=== PATIENT | male | born 1980 ===

== ENCOUNTER 2018-11-29 08:46 | Outpatient (CLI) | payer BC ==
[2018-11-29 10:45] LABS: Hematocrit 44.6 % (35.5-45.6); Mean Corpuscular HGB Conc 34 % (32-34); Mean Corpuscular Volume 90 fl (84-94); Platelet Count 150 K/mm3 (140-440); Red Blood Count 4.95 M/mm3 (3.65-5.03); Red Cell Distribution Width 13.2 % (13.2-15.2)
[2018-11-29 11:19] LABS: Albumin < 0.2 g/dL (3.9-5)
[2018-11-29 13:00] LABS: Alanine Aminotransferase 30 units/L (7-56); BUN/Creatinine Ratio 10; Blood Urea Nitrogen 10 mg/dL (9-20); Calcium 9.2 mg/dL (8.4-10.2); HDL Cholesterol 42 mg/dL (40-59); Hemolysis Index 36; LDL Cholesterol,Direct 104 mg/dL (50-130)
[2018-12-03 11:37] LABS: Vitamin D, 25-OH, D2 SEE SCANNED RESULTS
== END 2018-11-29 08:47 | disposition home or self-care (01) ==
LOC: LAB 08:46
PROVIDERS: ATTEND Internal Medicine
DX: Z00.01 Encounter for general adult medical examination with abnormal findings (principal); F41.9 Anxiety disorder, unspecified; R07.9 Chest pain, unspecified; R73.03 Prediabetes
CPT/HCPCS: 36415; 80053; 80061; 82306; 82607; 83036; 84443; 85027

== ENCOUNTER 2018-12-13 10:40 | Outpatient (CLI) | payer BC | END 2018-12-13 10:41 | disposition home or self-care (01) | LOC: LAB 10:40 | PROVIDERS: ATTEND Internal Medicine | DX: Z00.01 Encounter for general adult medical examination with abnormal findings (principal); R68.82 Decreased libido | CPT/HCPCS: 36415; 87591; 87806 ==